=== PATIENT | female | born 1980 | race Caucasian/White ===

== ENCOUNTER 2025-02-07 14:03 | Emergency (ER) | payer OTHER ==
[~2025-02-07] VITALS: Ht 162.6 cm; Wt 145.1 kg
[~2025-02-07 14:03] MED LIST: DILANTIN100 MG; DILANTIN100 MG PO; KETO10TA2 PO; ORPH100T PO
[2025-02-07] MEDS ORDERED: CLONIDINE1 EACH PO (14:47)
[2025-02-07] MEDS ORDERED: LAMICTAL200 M1 PO (14:48)
[2025-02-07] MEDS ORDERED: CLONIDINE1 EACH TD (14:48)
[2025-02-07] MEDS ORDERED: NEURONTIN300 MG PO (14:48)
[2025-02-07] MEDS ORDERED: IRON236 MG (14:49)
[2025-02-07] MEDS ORDERED: DIALYVITE 800-1 EACH (14:49)
[2025-02-07] MEDS ORDERED: PRENATAL + DHA1 EAC1 (14:50)
[2025-02-07] MEDS ORDERED: ACETAMINOPHEN 500 MG GEL..CAP PO ONE (15:03)
[2025-02-07 17:29] LABS: HEMATOCRIT 37.4 % (36.0-45.00); HEMOGLOBIN 12.4 g/dL (12.0-15.00); MEAN CELL VOLUME 80.3 fL (80.00-100.00); MEAN CORPUSCULAR HEMOGLOBIN 26.7 pg (27.00-32.0); MEAN CORPUSCULAR HGB CONC 33.2 g/dl (32.0-36.0); PLATELET COUNT 211 K/uL (150-450); RED BLOOD COUNT 4.65 M/uL (4.00-6.00); RED CELL DISTRIBUTION WIDTH 14.9 % (11.5-14.5)
[2025-02-07 17:54] LABS: ANION GAP 10 (10.0-20.0); BLOOD UREA NITROGEN 12 mg/dL (7-18); BUN CREA RATIO 19 (7.0-25.0); CALCIUM 8.8 mg/dL (8.5-10.1); CARBON DIOXIDE 30 mEq/L (21-32); CHLORIDE 105 mmol/L (98-107); CREATININE SERUM 0.64 mg/dL (0.55-1.02); GFR 100.35; GLUCOSE FASTING 103 mg/dL (65-100); OSMOLALITY SERUM 281 MOSM/KG (275-295); POTASSIUM 3.76 mEq/L (3.5-5.1); SODIUM 141 mmol/L (136-145)
[2025-02-07 17:56] LABS: HCG QUANTITATIVE < 1 mUI/mL (1-3)
[2025-02-07 18:24] LABS: INFLUENZA A AG NEGATIVE (NEGATIVE); INFLUENZA B AG NEGATIVE (NEGATIVE)
[2025-02-07 18:25] LABS: COVID-19 AG NEGATIVE (NEGATIVE)
[2025-02-07 19:09] LABS: PH,URINE 5.5 (5.0-8.0); URINE APPEARANCE Cloudy; URINE BILIRRUBIN Negative (NEGATIVE); URINE BLOOD Negative; URINE COLOR Yellow; URINE GLUCOSE Negative (NEGATIVE); URINE KETONE Negative (NEGATIVE); URINE LEUKOCYTE Small; URINE NITRATE Negative; URINE PROTEIN Negative (NEGATIVE)
[2025-02-07 19:13] LABS: URINE BACTERIA 1797.8 uL (0.0-1933); URINE RBC 2.9 uL (0.0-20.8); URINE WBC 87.8 uL (0.0-23.2)
[2025-02-07 19:19] LABS: URINE CAST 0.14 uL (0.0-1.40)
== END 2025-02-07 20:56 | disposition home or self-care (01) ==
LOC: ER 14:03
PROVIDERS: Emergency Medicine
DX: I10 Essential (primary) hypertension (principal); Z88.0 Allergy status to penicillin

== ENCOUNTER 2025-08-22 17:47 | Emergency (ER) | payer OTHER ==
[~2025-08-22] VITALS: Ht 162.6 cm; Wt 145.1 kg
[~2025-08-22 17:47] MED LIST changes: +CLONIDINE1 EACH PO; +CLONIDINE1 EACH TD; +DIALYVITE 800-1 EACH; +IRON236 MG; +LAMICTAL200 M1 PO; +NEURONTIN300 MG PO; +PRENATAL + DHA1 EAC1
[2025-08-22] MEDS ORDERED: KETOROLAC TROMETHAMINE 30 MG VIAL IM STA (19:28)
[2025-08-22] MEDS ORDERED: ORPHENADRINE CITRATE 30 MG/ML AMPUL IM STA (19:28)
[2025-08-22] MEDS ORDERED: DEXAMETHASONE SODIUM PHOSPHATE 4 MG/ML VIAL IM STA (19:29)
[2025-08-22] MEDS ORDERED: KETOROLAC TROMETHAMINE 30 MG VIAL ONE (19:42)
[2025-08-22] MEDS ORDERED: ORPHENADRINE CITRATE 30 MG/ML AMPUL ONE (19:42)
[2025-08-22] MEDS ORDERED: DEXAMETHASONE SODIUM PHOSPHATE 4 MG/ML VIAL ONE (19:42)
[2025-08-22 19:59] LABS: BASO % 0.2 % (0.1-1.2); EOS # 0.19 (0.04-0.54); EOS % 2.1 % (0.7-7.0); LYMPH # 1.52 (1.18-3.74); LYMPH % 16.9 % (19.3-53.1); MEAN PLATELET VOLUME 10.40 fl (9.4-12.4); MONO # 0.44 (0.24-0.82); MONO % 4.9 % (4.7-12.5); NEUT # 6.83 (1.56-6.13); NEUT % 75.7 % (34.0-71.1); RED CELL DISTRIBUTION WIDTH 13.2 % (11.6-14.4)
[2025-08-22 20:21] LABS: ALT/SGPT 24.0 U/L (12-78); AST/SGOT 15.0 U/L (15-37); BILIRUBIN TOTAL 0.42 mg/dL (0.3-1.2); BUN CREA RATIO 28.0 (7.0-25.0); CREATININE SERUM 0.68 mg/dL (0.55-1.02); GFR 93.57; GLOBULINA 4.5 G/DL (2.4-3.5); GLUCOSE FASTING 134.0 mg/dL (65-100); OSMOLALITY SERUM 285.0 MOSM/KG (275-295)
[2025-08-23] MEDS ORDERED: KETOROLAC TROMETHAMINE 30 MG VIAL IM STA (00:03)
[2025-08-23] MEDS ORDERED: TRAMADOL HCL 50 MG TABLET PO STA (00:05)
== END 2025-08-23 01:30 | disposition home or self-care (01) ==
LOC: ER 17:48
PROVIDERS: General Practice
DX: R42 Dizziness and giddiness (principal); M79.601 Pain in right arm; Z88.0 Allergy status to penicillin